=== PATIENT | male | born 1930 | race Caucasian/White ===

== ENCOUNTER 2016-09-19 12:06 | Day surgery (SDC) | payer OTHER ==
[~2016-09-19] VITALS: Ht 165.1 cm; Wt 77.1 kg
[~2016-09-19 12:06] MED LIST: ADULT LOW DOSE81 M1 PO; ALBUTEROL SULF8.5 GM IH; AMANTADINE100 MG PO; AMLODIPINE; ASPIRIN81 M2 PO; AZILECT0.5 MG PO; AZILECT1 MG PO; CARBIDOPA-LEVO1 EAC8 PO; CARBIDOPA/LEVO1 EACH PO; CLONAZEPAM0.5 MG PO; COLACE100 MG PO; CORDARONE200 MG PO; DIPHENHYDRAMINE50 MG PO; INDERAL80 MG PO; KLONOPIN0.5 M1 PO; LIPITOR40 MG PO; LISINOPRIL40 MG PO; NORVASC2.5 MG PO; PACERONE100 MG PO; PLAVIX75 MG PO; PRAMIPEXOLE0.125 MG PO; PROPRANOLOL HCL80 M1 PO; ROBITUSSIN AC,T10 ML PO; SINEMET 25-1001 EACH PO; SLEEP AID50 MG PO; STOOL SOFTENER100 MG PO; VICODIN 5-3001 EACH PO; ZETIA10 MG PO
== END 2016-09-19 15:50 | disposition home or self-care (01) ==
LOC: CATH 12:06
DX: Z45.02 Encounter for adjustment and management of automatic implantable cardiac defibrillator (principal); I47.2 Ventricular tachycardia; E78.5 Hyperlipidemia, unspecified; I10 Essential (primary) hypertension; I25.10 Atherosclerotic heart disease of native coronary artery without angina pectoris; I25.2 Old myocardial infarction; Z95.1 Presence of aortocoronary bypass graft; Z95.2 Presence of prosthetic heart valve; G20 Parkinson's disease; I35.1 Nonrheumatic aortic (valve) insufficiency; E78.2 Mixed hyperlipidemia; Z87.891 Personal history of nicotine dependence; Z79.82 Long term (current) use of aspirin
CPT/HCPCS: C1721; J0690; J1200; J2250; J3010; S0020

== ENCOUNTER 2017-02-05 10:45 | Observation (INO) | payer OTHER ==
[~2017-02-05] VITALS: Ht 167.6 cm; Wt 80.5 kg
[2017-02-05 12:27] LABS: EOSINOPHIL (%) 1.4 % (0-5); EOSINOPHIL COUNT 0.1 K/uL (0-0.3); HEMATOCRIT 32.8 % (38.0-50.0); IMMATURE GRANULOCYTE (%) 0.4 % (0.0-0.7); INSTRUMENT ABS NEUTROPHIL CT 4.6 K/uL; LYMPHOCYTE COUNT 1.6 K/uL (1.0-2.8); MCH 30.6 PG (29.0-34.0); MCHC 32.9 G/DL (30.0-36.0); MCV 92.9 FL (86-99); MEAN PLAT.VOLUME 10.9 uM^3 (9.0-12.4); MONOCYTE (%) 7.8 % (3-12); MONOCYTE COUNT 0.5 K/uL (0-0.8); NEUTROPHIL (%) 66.4 % (45-76); NEUTROPHIL COUNT 4.6 K/uL (1.8-6.4); PLATELET COUNT 117 K/uL (156-360); RBC DIS.WIDTH-CV 12.8 % (11.8-14.6); RBC DIS.WIDTH-SD 43.2 % (39-53); RED BLOOD COUNT 3.53 M/uL (4.00-5.50)
[2017-02-05 12:33] LABS: PROTHROMBIN TIME 11.4 SEC (10.2-12.9)
[2017-02-05 12:37] LABS: CHLORIDE 106 mEq/L (99-109); POTASSIUM 4.6 mEq/L (3.7-5.4); SODIUM 138 mEq/L (136-147)
[2017-02-05 12:39] LABS: GLUCOSE 132 mg/dL (70-99)
[2017-02-05 12:41] LABS: ANION GAP 8 MEQ/L (2-14)
[2017-02-05 12:43] LABS: GFR ESTIMATE (CALCULATED) > 59 mL/min/
[2017-02-05 12:44] LABS: UREA NITROGEN (BUN) 21 mg/dL (9-23)
[2017-02-05 12:47] LABS: TROP-I INTERPRETATION NEGATIVE; TROPONIN-I 0.02 ng/mL (0.0-0.30)
[2017-02-05] MEDS ORDERED: INDERAL80 MG PO (16:38)
[2017-02-05] MEDS ORDERED: SINEMET CR 50-1 EACH PO (16:39)
[2017-02-05] MEDS ORDERED: SINEMET 25-1001 EACH PO (16:40)
[2017-02-05] MEDS ORDERED: SYNTHROID50 MCG PO (16:41)
[2017-02-05 16:50] VITALS: BP 177/81
[2017-02-05 18:34] LABS: TROP-I INTERPRETATION NEGATIVE; TROPONIN-I 0.03 ng/mL (0.0-0.30)
[2017-02-05 18:59] VITALS: BP 123/67
[2017-02-05 23:39] VITALS: BP 129/59
[2017-02-06 01:15] LABS: TROP-I INTERPRETATION NEGATIVE; TROPONIN-I 0.03 ng/mL (0.0-0.30)
[2017-02-06 04:23] VITALS: BP 172/77
[2017-02-06 05:18] VITALS: BP 133/76
[2017-02-06 05:50] LABS: HEMATOCRIT 33.3 % (38.0-50.0); MCH 30.5 PG (29.0-34.0); MCV 92.2 FL (86-99); MEAN PLAT.VOLUME 10.7 uM^3 (9.0-12.4); PLATELET COUNT 124 K/uL (156-360); RBC DIS.WIDTH-CV 12.7 % (11.8-14.6); RBC DIS.WIDTH-SD 43.4 % (39-53); RED BLOOD COUNT 3.61 M/uL (4.00-5.50); WHITE BLOOD COUNT 6.9 K/uL (4.1-10.2)
[2017-02-06 06:18] LABS: ANION GAP 7 MEQ/L (2-14); CHLORIDE 110 MEQ/L (99-109); GFR ESTIMATE (CALCULATED) > 59 mL/min/; POTASSIUM 4.3 MEQ/L (3.7-5.4); SAMPLE HEMOLYSIS CHECK 0; SAMPLE ICTERIC CHECK 0; SAMPLE LIPEMIA CHECK 0; SODIUM 144 MEQ/L (136-147); UREA NITROGEN (BUN) 18 mg/dL (9-23)
[2017-02-06 06:21] LABS: GLUCOSE 80 mg/dL (70-99)
[2017-02-06 08:01] VITALS: BP 173/79; BP 187/79
[2017-02-06 11:54] VITALS: BP 122/63
[2017-02-06] MEDS ORDERED: AMANTADINE100 M1 PO (11:57)
== END 2017-02-06 15:46 | disposition home health service (06) ==
LOC: EME 10:45 → EDOF 14:20 → 5WEST 14:20 → EDOF 14:20 → 5WEST 16:16
PROVIDERS: Emergency Medicine; Physician Assistant Medical
DX: R55 Syncope and collapse (principal); I95.9 Hypotension, unspecified; R41.82 Altered mental status, unspecified; R53.83 Other fatigue; I10 Essential (primary) hypertension; I25.2 Old myocardial infarction; Z95.1 Presence of aortocoronary bypass graft; Z79.02 Long term (current) use of antithrombotics/antiplatelets; I25.10 Atherosclerotic heart disease of native coronary artery without angina pectoris; G20 Parkinson's disease; E78.5 Hyperlipidemia, unspecified; Z95.0 Presence of cardiac pacemaker; Z95.2 Presence of prosthetic heart valve; H54.8 Legal blindness, as defined in USA; J45.909 Unspecified asthma, uncomplicated
CPT/HCPCS: 70450; 71010; 80048; 84484; 85025; 85027; 85610; 85730; 93005; 99281; 99285; G0378; J1650; J1940; J7030

== ENCOUNTER 2017-04-18 16:12 | Observation (INO) | payer OTHER ==
[~2017-04-18] VITALS: Ht 167.6 cm; Wt 81.2 kg
[~2017-04-18 16:12] MED LIST changes: +AMANTADINE100 M1 PO; +LIPITOR20 MG PO; +SINEMET CR 50-1 EACH PO; +SYNTHROID50 MCG PO
[2017-04-18 17:08] LABS: HEMATOCRIT 31.4 % (38.0-50.0); MCHC 32.5 G/DL (30.0-36.0); MCV 92.4 FL (86-99); MEAN PLAT.VOLUME 10.6 uM^3 (9.0-12.4); PLATELET COUNT 104 K/uL (156-360); RBC DIS.WIDTH-CV 13.2 % (11.8-14.6); RBC DIS.WIDTH-SD 44.3 % (39-53); WHITE BLOOD COUNT 5.9 K/uL (4.1-10.2)
[2017-04-18 17:17] LABS: CHLORIDE 109 mEq/L (99-109); POTASSIUM 4.5 mEq/L (3.7-5.4); SODIUM 140 mEq/L (136-147)
[2017-04-18 17:19] LABS: GLUCOSE 116 mg/dL (70-99)
[2017-04-18 17:20] LABS: ANION GAP 7 MEQ/L (2-14)
[2017-04-18 17:23] LABS: GFR ESTIMATE (CALCULATED) > 59 mL/min/
[2017-04-18 17:24] LABS: UREA NITROGEN (BUN) 25 mg/dL (9-23)
[2017-04-18 17:26] LABS: LIPASE 11 U/L (1.0-51.0)
[2017-04-18 17:29] LABS: TROP-I INTERPRETATION NEGATIVE; TROPONIN-I 0.03 ng/mL (0.0-0.30)
[2017-04-18] MEDS ORDERED: TYLENOL REGULA325 MG PO ×2 (17:39→17:47)
[2017-04-18] MEDS ORDERED: BANOPHEN25 M3 PO (17:40)
[2017-04-18] MEDS ORDERED: ASPIR 8181 M1 PO (17:40)
[2017-04-18] MEDS ORDERED: SINEMET 25-1001 EACH PO ×3 (17:43→17:44)
[2017-04-18] MEDS ORDERED: SENNA PLUS TAB1 EACH PO (17:46)
[2017-04-18] MEDS ORDERED: BIOFREEZE TP (17:47)
[2017-04-18] MEDS ORDERED: ALBUTEROL2.5 MG/3 M IH (17:49)
[2017-04-18 22:58] VITALS: BP 133/71
[2017-04-19 00:59] LABS: TROP-I INTERPRETATION NEGATIVE; TROPONIN-I 0.03 ng/mL (0.0-0.30)
[2017-04-19 04:40] VITALS: BP 150/70
[2017-04-19 05:32] LABS: HEMATOCRIT 34.3 % (38.0-50.0); MCH 30.8 PG (29.0-34.0); MCHC 33.2 G/DL (30.0-36.0); MCV 92.7 FL (86-99); MEAN PLAT.VOLUME 11.2 uM^3 (9.0-12.4); PLATELET COUNT 110 K/uL (156-360); RBC DIS.WIDTH-CV 13.2 % (11.8-14.6); RBC DIS.WIDTH-SD 44.8 % (39-53); WHITE BLOOD COUNT 6.2 K/uL (4.1-10.2)
[2017-04-19 05:51] LABS: TROP-I INTERPRETATION NEGATIVE; TROPONIN-I 0.03 ng/mL (0.0-0.30)
[2017-04-19 05:58] LABS: ANION GAP 8 MEQ/L (2-14); CHLORIDE 106 MEQ/L (99-109); GFR ESTIMATE (CALCULATED) > 59 mL/min/; GLUCOSE 102 mg/dL (70-99); POTASSIUM 4.2 MEQ/L (3.7-5.4); SAMPLE HEMOLYSIS CHECK 0; SAMPLE ICTERIC CHECK 0; SAMPLE LIPEMIA CHECK 0; SODIUM 142 MEQ/L (136-147); UREA NITROGEN (BUN) 21 mg/dL (9-23)
[2017-04-19 08:00] VITALS: BP 183/78
[2017-04-19 11:15] VITALS: BP 141/70
== END 2017-04-19 14:59 | disposition home or self-care (01) ==
LOC: EME → EDBD 16:12 → EME 16:12 → EDOF 20:25 → ENRESERV 20:31 → 5WEST 22:42
PROVIDERS: Emergency Medicine; Hospitalist
DX: R07.9 Chest pain, unspecified (principal); I11.0 Hypertensive heart disease with heart failure; I50.9 Heart failure, unspecified; D69.6 Thrombocytopenia, unspecified; G20 Parkinson's disease; K59.00 Constipation, unspecified; I25.10 Atherosclerotic heart disease of native coronary artery without angina pectoris; Z95.1 Presence of aortocoronary bypass graft; Z95.2 Presence of prosthetic heart valve; Z95.0 Presence of cardiac pacemaker; M79.89 Other specified soft tissue disorders; Z80.0 Family history of malignant neoplasm of digestive organs; Z91.041 Radiographic dye allergy status; E78.5 Hyperlipidemia, unspecified; I25.2 Old myocardial infarction; Z87.442 Personal history of urinary calculi
CPT/HCPCS: 71010; 74176; 78582; 80048; 83690; 83880; 84484; 85027; 85379; 93005; 93971; 99281; 99285; A9539; A9540; C9113; G0378; G8978 GP CH; G8979 GP CH; G8980 GP CH; J1940; J2405; S0028

== ENCOUNTER 2017-04-21 09:07 | Observation (INO) | payer OTHER ==
[~2017-04-21] VITALS: Ht 170.2 cm; Wt 75.7 kg
[~2017-04-21 09:07] MED LIST changes: +ALBUTEROL2.5 MG/3 M IH; +ASPIR 8181 M1 PO; +BANOPHEN25 M3 PO; +BIOFREEZE TP; +SENNA PLUS TAB1 EACH PO; +TYLENOL REGULA325 MG PO
[2017-04-21 09:34] LABS: EOSINOPHIL COUNT 0.2 K/uL (0-0.3); HEMATOCRIT 38.4 % (38.0-50.0); IMMATURE GRANULOCYTE (%) 0.3 % (0.0-0.7); LYMPHOCYTE COUNT 2.5 K/uL (1.0-2.8); MCH 30.1 PG (29.0-34.0); MCHC 32.6 G/DL (30.0-36.0); MCV 92.5 FL (86-99); MEAN PLAT.VOLUME 10.9 uM^3 (9.0-12.4); MONOCYTE (%) 6.7 % (3-12); MONOCYTE COUNT 0.6 K/uL (0-0.8); PLATELET COUNT 127 K/uL (156-360); RBC DIS.WIDTH-CV 13.2 % (11.8-14.6); RBC DIS.WIDTH-SD 45.1 % (39-53); RED BLOOD COUNT 4.15 M/uL (4.00-5.50); WHITE BLOOD COUNT 9.4 K/uL (4.1-10.2)
[2017-04-21 09:43] LABS: CHLORIDE 107 mEq/L (99-109); POTASSIUM 4.7 mEq/L (3.7-5.4); SODIUM 142 mEq/L (136-147)
[2017-04-21 09:45] LABS: GLUCOSE 134 mg/dL (70-99)
[2017-04-21 09:46] LABS: ANION GAP 8 MEQ/L (2-14)
[2017-04-21 09:49] LABS: GFR ESTIMATE (CALCULATED) > 59 mL/min/
[2017-04-21 09:50] LABS: UREA NITROGEN (BUN) 23 mg/dL (9-23)
[2017-04-21] MEDS ORDERED: MIRAPEX0.125 MG PO ×2 (09:52→11:22)
[2017-04-21 10:18] LABS: TROP-I INTERPRETATION NEGATIVE; TROPONIN-I 0.02 ng/mL (0.0-0.30)
[2017-04-21] MEDS ORDERED: SINEMET 25-1001 EACH PO ×4 (11:06→13:22)
[2017-04-21 15:59] VITALS: BP 137/91
[2017-04-21 16:23] LABS: TROP-I INTERPRETATION NEGATIVE; TROPONIN-I 0.03 ng/mL (0.0-0.30)
[2017-04-21 20:26] VITALS: BP 123/69
[2017-04-21 22:14] LABS: TROP-I INTERPRETATION NEGATIVE; TROPONIN-I 0.02 ng/mL (0.0-0.30)
[2017-04-22 00:27] VITALS: BP 132/62
[2017-04-22 04:01] VITALS: BP 107/49
[2017-04-22 07:07] LABS: ANION GAP 7 MEQ/L (2-14); CHLORIDE 103 MEQ/L (99-109); GFR ESTIMATE (CALCULATED) > 59 mL/min/; GLUCOSE 122 mg/dL (70-99); POTASSIUM 4.3 MEQ/L (3.7-5.4); SAMPLE HEMOLYSIS CHECK 0; SAMPLE ICTERIC CHECK 0; SAMPLE LIPEMIA CHECK 0; SODIUM 142 MEQ/L (136-147); UREA NITROGEN (BUN) 30 mg/dL (9-23)
[2017-04-22 07:52] VITALS: BP 145/64
[2017-04-22] MEDS ORDERED: FUROSEMIDE40 MG PO (13:09)
== END 2017-04-22 14:37 ==
LOC: EME 09:07 → 5SOUTH 12:48 → EDOF 12:48 → 5SOUTH 12:48 → ENRESERV 12:50 → 5SOUTH 15:07
PROVIDERS: Emergency Medicine; Internal Medicine
DX: I11.0 Hypertensive heart disease with heart failure (principal); I50.9 Heart failure, unspecified; R09.02 Hypoxemia; I25.10 Atherosclerotic heart disease of native coronary artery without angina pectoris; Z95.810 Presence of automatic (implantable) cardiac defibrillator; Z95.1 Presence of aortocoronary bypass graft; Z95.2 Presence of prosthetic heart valve; I25.2 Old myocardial infarction; I25.5 Ischemic cardiomyopathy; G20 Parkinson's disease; E78.5 Hyperlipidemia, unspecified; Z79.82 Long term (current) use of aspirin; H54.8 Legal blindness, as defined in USA; Z87.442 Personal history of urinary calculi
CPT/HCPCS: 71010; 80048; 83880; 84484; 85025; 90686; 93005; 94640; 99281; 99285; G0378; J1650; J1940; J2930; J7644

== ENCOUNTER 2017-07-01 18:06 | Emergency (ER) | payer OTHER ==
[~2017-07-01] VITALS: Ht 167.6 cm; Wt 79.5 kg
[~2017-07-01 18:06] MED LIST changes: +FUROSEMIDE40 MG PO; +MIRAPEX0.125 MG PO
[2017-07-01 18:41] LABS: HEMATOCRIT 32.9 % (38.0-50.0); MCH 30.7 PG (29.0-34.0); MCHC 33.7 G/DL (30.0-36.0); MCV 91.1 FL (86-99); MEAN PLAT.VOLUME 10.3 uM^3 (9.0-12.4); PLATELET COUNT 119 K/uL (156-360); RBC DIS.WIDTH-CV 13.5 % (11.8-14.6); RBC DIS.WIDTH-SD 45.9 % (39-53); RED BLOOD COUNT 3.61 M/uL (4.00-5.50); WHITE BLOOD COUNT 8.4 K/uL (4.1-10.2)
[2017-07-01] MEDS ORDERED: BIOFREEZE TP (18:46)
[2017-07-01] MEDS ORDERED: FUROSEMIDE40 MG PO (18:48)
[2017-07-01] MEDS ORDERED: MIRALAX17 GM PO (18:49)
[2017-07-01 18:53] LABS: CHLORIDE 102 mEq/L (99-109); POTASSIUM 4.7 mEq/L (3.7-5.4); SODIUM 136 mEq/L (136-147)
[2017-07-01] MEDS ORDERED: TRAMADOL HCL50 MG PO (18:53)
[2017-07-01] MEDS ORDERED: CILOSTAZOL50 MG PO (18:53)
[2017-07-01] MEDS ORDERED: CALCIUM 500 +1 EAC2 PO (18:54)
[2017-07-01 18:56] LABS: ANION GAP 9 MEQ/L (2-14)
[2017-07-01 18:59] LABS: GFR ESTIMATE (CALCULATED) 56 mL/min/ (58.99-99999); UREA NITROGEN (BUN) 25 mg/dL (9-23)
[2017-07-01 19:05] LABS: GLUCOSE 112 mg/dL (70-99)
[2017-07-01 19:15] LABS: TROP-I INTERPRETATION NEGATIVE; TROPONIN-I 0.02 ng/mL (0.0-0.30)
[2017-07-01 21:20] VITALS: BP 169/99
== END 2017-07-01 21:20 ==
LOC: EME 18:06
PROVIDERS: Emergency Medicine
DX: R55 Syncope and collapse (principal); E86.0 Dehydration; R53.1 Weakness; R42 Dizziness and giddiness; I10 Essential (primary) hypertension; Z95.1 Presence of aortocoronary bypass graft; Z95.4 Presence of other heart-valve replacement; Z95.811 Presence of heart assist device; Z79.02 Long term (current) use of antithrombotics/antiplatelets; Z79.82 Long term (current) use of aspirin
CPT/HCPCS: 80048 91; 84484; 85027; 93005; 99281; 99285; J7030

== ENCOUNTER 2017-11-04 10:38 | Inpatient (IN) | payer OTHER ==
[~2017-11-04] VITALS: Ht 167.6 cm; Wt 73.6 kg
[~2017-11-04 10:38] MED LIST changes: +CALCIUM 500 +1 EAC2 PO; +CILOSTAZOL50 MG PO; +INDERAL20 MG PO; +MIRALAX17 GM PO; +TRAMADOL HCL50 MG PO
[2017-11-04 11:11] LABS: BASOPHIL (%) 0.1 % (0-1); EOSINOPHIL (%) 0.9 % (0-5); EOSINOPHIL COUNT 0.1 K/uL (0-0.3); HEMATOCRIT 33.8 % (38.0-50.0); HEMOGLOBIN 10.8 G/DL (12.5-16.6); IMMATURE GRANULOCYTE (%) 0.3 % (0.0-0.7); LYMPHOCYTE COUNT 2.1 K/uL (1.0-2.8); MCH 30.3 PG (29.0-34.0); MCV 94.9 FL (86-99); MONOCYTE (%) 4.8 % (3-12); MONOCYTE COUNT 0.5 K/uL (0-0.8); NEUTROPHIL (%) 72.9 % (45-76); NEUTROPHIL COUNT 7.3 K/uL (1.8-6.4); PLATELET COUNT 129 K/uL (156-360); RBC DIS.WIDTH-CV 12.4 % (11.8-14.6); RBC DIS.WIDTH-SD 43.3 % (39-53); RED BLOOD COUNT 3.56 M/uL (4.00-5.50)
[2017-11-04 11:17] LABS: INTER. NORMALIZED RATIO 1.1
[2017-11-04 11:19] LABS: PTT 29.4 SEC (25-37)
[2017-11-04 11:23] LABS: CHLORIDE 104 mEq/L (99-109); POTASSIUM 4.7 mEq/L (3.7-5.4); SODIUM 142 mEq/L (136-147)
[2017-11-04 11:24] LABS: MAGNESIUM 2.2 mg/dL (1.3-2.7)
[2017-11-04 11:25] LABS: GLUCOSE 126 mg/dL (70-99)
[2017-11-04 11:26] LABS: APPEARANCE CLEAR ((CLEAR)); BILIRUBIN NEGATIVE; BLOOD NEGATIVE; COLOR COLORLESS ((YELLOW)); GLUCOSE (STRIP) NEGATIVE; KETONES NEGATIVE; LEUKOCYTES NEGATIVE; NITRITE NEGATIVE; PROTEIN (STRIP) NEGATIVE; SPECIFIC GRAVITY 1.006 (1.000-1.030); UCUL ADDED? NO; UROBILINOGEN 0.2 MG/DL (0.2-1.0)
[2017-11-04 11:29] LABS: CREATININE 1.2 mg/dL (0.6-1.3); GFR ESTIMATE (CALCULATED) > 59 mL/min/ (58.99-99999)
[2017-11-04 11:30] LABS: UREA NITROGEN (BUN) 17 mg/dL (9-23)
[2017-11-04 11:36] LABS: TROP-I INTERPRETATION NEGATIVE; TROPONIN-I 0.06 ng/mL (0.0-0.30)
[2017-11-04] MEDS ORDERED: MELATONIN5 M4 PO (14:17)
[2017-11-04] MEDS ORDERED: ADVAIR 100/501 DISK IH (14:26)
[2017-11-04] MEDS ORDERED: KLOR-CON 1010 ME1 PO (14:30)
[2017-11-04] MEDS ORDERED: RYTARY ER 48.71 EACH PO (14:33)
[2017-11-04] MEDS ORDERED: MYCOSTATIN 100,60 ML PO (14:39)
[2017-11-04 17:34] LABS: TROP-I INTERPRETATION NEGATIVE; TROPONIN-I 0.08 ng/mL (0.0-0.30)
[2017-11-04 22:14] VITALS: BP 109/65
[2017-11-04 23:34] LABS: TROP-I INTERPRETATION NEGATIVE; TROPONIN-I 0.07 ng/mL (0.0-0.30)
[2017-11-05] VITALS (7 sets, daily range): BP systolic 106–158; BP diastolic 52–86
[2017-11-05 05:25] LABS: HEMATOCRIT 29.2 % (38.0-50.0); HEMOGLOBIN 9.1 G/DL (12.5-16.6); MCH 29.5 PG (29.0-34.0); MCHC 31.2 G/DL (30.0-36.0); MCV 94.8 FL (86-99); PLATELET COUNT 119 K/uL (156-360); RBC DIS.WIDTH-CV 12.4 % (11.8-14.6); RED BLOOD COUNT 3.08 M/uL (4.00-5.50); WHITE BLOOD COUNT 6.5 K/uL (4.1-10.2)
[2017-11-05 05:54] LABS: CHLORIDE 103 MEQ/L (99-109); GFR ESTIMATE (CALCULATED) > 59 mL/min/ (58.99-99999); POTASSIUM 3.8 MEQ/L (3.7-5.4); SODIUM 140 MEQ/L (136-147); UREA NITROGEN (BUN) 15 mg/dL (9-23)
[2017-11-05 06:08] LABS: GLUCOSE 85 mg/dL (70-99)
[2017-11-06 05:13] VITALS: BP 102/57
[2017-11-06 05:50] LABS: BASOPHIL (%) 0.3 % (0-1); EOSINOPHIL (%) 2.5 % (0-5); EOSINOPHIL COUNT 0.2 K/uL (0-0.3); HEMATOCRIT 28.5 % (38.0-50.0); HEMOGLOBIN 8.9 G/DL (12.5-16.6); IMMATURE GRANULOCYTE (%) 0.3 % (0.0-0.7); LYMPHOCYTE (%) 34.9 % (15-42); LYMPHOCYTE COUNT 2.1 K/uL (1.0-2.8); MCH 29.2 PG (29.0-34.0); MCHC 31.2 G/DL (30.0-36.0); MCV 93.4 FL (86-99); MONOCYTE (%) 8.4 % (3-12); MONOCYTE COUNT 0.5 K/uL (0-0.8); NEUTROPHIL (%) 53.6 % (45-76); NEUTROPHIL COUNT 3.3 K/uL (1.8-6.4); PLATELET COUNT 113 K/uL (156-360); RBC DIS.WIDTH-CV 12.4 % (11.8-14.6); RBC DIS.WIDTH-SD 42.5 % (39-53); RED BLOOD COUNT 3.05 M/uL (4.00-5.50); WHITE BLOOD COUNT 6.1 K/uL (4.1-10.2)
[2017-11-06 06:11] LABS: CHLORIDE 102 MEQ/L (99-109); CREATININE 1.1 MG/DL (0.6-1.3); GFR ESTIMATE (CALCULATED) > 59 mL/min/ (58.99-99999); GLUCOSE 94 mg/dL (70-99); POTASSIUM 3.2 MEQ/L (3.7-5.4); SODIUM 140 MEQ/L (136-147); UREA NITROGEN (BUN) 17 mg/dL (9-23)
[2017-11-06 07:11] VITALS: BP 125/69
[2017-11-06 11:53] VITALS: BP 112/60
[2017-11-06 15:19] VITALS: BP 130/70
[2017-11-06 19:17] VITALS: BP 146/88
[2017-11-06 23:24] VITALS: BP 157/88
[2017-11-07 08:23] VITALS: BP 132/98
[2017-11-07 10:34] LABS: CHLORIDE 102 MEQ/L (99-109); GFR ESTIMATE (CALCULATED) > 59 mL/min/ (58.99-99999); GLUCOSE 131 mg/dL (70-99); SODIUM 143 MEQ/L (136-147); UREA NITROGEN (BUN) 17 mg/dL (9-23)
[2017-11-07 10:37] LABS: POTASSIUM 4.2 MEQ/L (3.7-5.4)
[2017-11-07 16:03] VITALS: BP 75/41; BP 78/38
[2017-11-07 17:32] VITALS: BP 100/55
[2017-11-07 22:55] VITALS: BP 103/57
[2017-11-08 07:46] VITALS: BP 124/58
[2017-11-08 07:51] LABS: BASOPHIL (%) 0.3 % (0-1); EOSINOPHIL (%) 1.9 % (0-5); EOSINOPHIL COUNT 0.1 K/uL (0-0.3); HEMATOCRIT 34.7 % (38.0-50.0); IMMATURE GRANULOCYTE (%) 0.1 % (0.0-0.7); LYMPHOCYTE (%) 32.6 % (15-42); LYMPHOCYTE COUNT 2.4 K/uL (1.0-2.8); MCH 29.7 PG (29.0-34.0); MCHC 31.4 G/DL (30.0-36.0); MCV 94.6 FL (86-99); MONOCYTE (%) 6.9 % (3-12); MONOCYTE COUNT 0.5 K/uL (0-0.8); NEUTROPHIL (%) 58.2 % (45-76); NEUTROPHIL COUNT 4.2 K/uL (1.8-6.4); PLATELET COUNT 119 K/uL (156-360); RBC DIS.WIDTH-CV 12.5 % (11.8-14.6); RBC DIS.WIDTH-SD 43.4 % (39-53); WHITE BLOOD COUNT 7.3 K/uL (4.1-10.2)
[2017-11-08 07:52] LABS: HEMOGLOBIN 10.9 G/DL (12.5-16.6); RED BLOOD COUNT 3.67 M/uL (4.00-5.50)
[2017-11-08 08:15] LABS: CHLORIDE 102 MEQ/L (99-109); GFR ESTIMATE (CALCULATED) > 59 mL/min/ (58.99-99999); GLUCOSE 100 mg/dL (70-99); POTASSIUM 3.6 MEQ/L (3.7-5.4); SODIUM 142 MEQ/L (136-147); UREA NITROGEN (BUN) 17 mg/dL (9-23)
[2017-11-08 11:43] VITALS: BP 118/52
[2017-11-08 16:15] VITALS: BP 87/51
[2017-11-08 20:01] VITALS: BP 148/80
[2017-11-09 00:30] VITALS: BP 146/72
[2017-11-09 04:51] VITALS: BP 118/50
[2017-11-09 06:36] LABS: CHLORIDE 105 MEQ/L (99-109); GFR ESTIMATE (CALCULATED) > 59 mL/min/ (58.99-99999); GLUCOSE 87 mg/dL (70-99); POTASSIUM 3.4 MEQ/L (3.7-5.4); SODIUM 143 MEQ/L (136-147); UREA NITROGEN (BUN) 18 mg/dL (9-23)
[2017-11-09 07:55] VITALS: BP 99/58
[2017-11-09 13:06] VITALS: BP 156/62
[2017-11-09 17:30] VITALS: BP 115/57
[2017-11-09 21:27] VITALS: BP 122/57
[2017-11-10 01:23] VITALS: BP 135/82
[2017-11-10 05:23] VITALS: BP 127/57
[2017-11-10 06:36] LABS: CHLORIDE 105 MEQ/L (99-109); GFR ESTIMATE (CALCULATED) > 59 mL/min/ (58.99-99999); GLUCOSE 102 mg/dL (70-99); POTASSIUM 3.8 MEQ/L (3.7-5.4); SODIUM 144 MEQ/L (136-147); UREA NITROGEN (BUN) 15 mg/dL (9-23)
[2017-11-10 09:21] VITALS: BP 84/46
[2017-11-10 14:15] VITALS: BP 93/56
[2017-11-10 14:27] VITALS: BP 96/58
[2017-11-10] MEDS ORDERED: INDERAL10 MG PO (16:04)
[2017-11-10] MEDS ORDERED: QUETIAPINE FUMA25 MG PO (16:04)
== END 2017-11-10 17:02 | DRG 292 ==
LOC: EME 10:38 → 4EAST 14:00 → EDOF 14:00 → ENRESERV 14:06 → EDOF 16:32 → ENRESERV 16:41 → 4EAST 21:34 → ENRESERV 11-06 13:49 → 3EAST 11-06 15:02
PROVIDERS: Emergency Medicine; Physician Assistant; Physician Assistant Medical; Student in an Organized Health Care Education/Training Program
DX: I11.0 Hypertensive heart disease with heart failure (principal); R44.3 Hallucinations, unspecified; F05 Delirium due to known physiological condition; I50.9 Heart failure, unspecified; I25.5 Ischemic cardiomyopathy; R13.10 Dysphagia, unspecified; G20 Parkinson's disease; E78.5 Hyperlipidemia, unspecified; I25.10 Atherosclerotic heart disease of native coronary artery without angina pectoris; D64.9 Anemia, unspecified; E03.9 Hypothyroidism, unspecified; I44.7 Left bundle-branch block, unspecified; R45.1 Restlessness and agitation; E87.6 Hypokalemia; I95.9 Hypotension, unspecified; Z78.1 Physical restraint status; Z79.02 Long term (current) use of antithrombotics/antiplatelets; Z79.82 Long term (current) use of aspirin; Z95.1 Presence of aortocoronary bypass graft; Z95.2 Presence of prosthetic heart valve; Z95.810 Presence of automatic (implantable) cardiac defibrillator; Z91.041 Radiographic dye allergy status; Z79.51 Long term (current) use of inhaled steroids; Z80.0 Family history of malignant neoplasm of digestive organs
CPT/HCPCS: 71045; 74230; 80048; 81003; 83735; 83880; 84484; 85025; 85027; 85610; 85730; 92526 GN; 92610 GN; 92611 GN; 93005; 93306; 94640; 94640 76; 94799; 99202; 99281; 99285; J1630; J1644; J1940; J2060; J7040; J7644